=== PATIENT | male | born 1950 | race Caucasian/White ===

== ENCOUNTER 2020-06-29 07:44 | Outpatient (CLI) | payer MEDICARE, BC ==
[~2020-06-29] VITALS: Ht 180.3 cm; Wt 77.1 kg
[2020-06-29] MEDS ORDERED: IOHEXOL-350 100 ML VIAL IV ONE (12:02)
[2020-06-29] MEDS ORDERED: IV NS 0.9% 250 ML IV ONE (12:02)
--- NOTE | 2020-06-29 12:10 | NUR ---
[facility] nurses notes pt stable prior to cta ,vs stable , r ac # 20 inserted , patent and intact , assessment done , pt verbalized no allergy , will continue to monitor .
[2020-06-29] MEDS ORDERED: METOPROLOL TARTRATE INJ 5 MG/5 ML AMPUL ONE (12:21)
--- NOTE | 2020-06-29 12:31 | NUR ---
[facility] nurse notes pt stable s/p cta , no reactions to medication and dye , denies sob discomfort and dizziness , aox4 , piv intact , vss , spo2 100% via ra , sr 65 on the monitor ,
--- NOTE | 2020-06-29 12:57 | NUR ---
[facility] NURSE NOTES REPORT GIVEN TO JUN DUNNE FOR PT TRANSFER PT STABLE , AMBULATORY , NO REACTIONS NOTED , VSS ,
== END 2020-06-29 23:59 | disposition home or self-care (01) ==
LOC: XR 07:44
PROVIDERS: ATTEND Internal Medicine Interventional Cardiology
DX: I25.10 Atherosclerotic heart disease of native coronary artery without angina pectoris (principal); I70.0 Atherosclerosis of aorta; I71.2 Thoracic aortic aneurysm, without rupture
CPT/HCPCS: 75574; J3490; J7050; Q9967